=== PATIENT | female | born 1980 | race African-American/Black ===

== ENCOUNTER 2017-04-18 05:18 | Day surgery (SDC) | payer OTHER ==
[2017-04-16 17:41] VITALS: BMI 29.1
[2017-04-18] MEDS ORDERED: ONDANSETRON 4 MG/2 ML VIAL IVPUSH PRN (09:17)
[2017-04-18] MEDS ORDERED: PROMETHAZINE HCL 25 MG/1 ML VIAL IVPUSH PRN (09:17)
[2017-04-18] MEDS ORDERED: oxyCODONE HCL 5 MG TABLET PO PRN (09:17)
[2017-04-18] MEDS ORDERED: LACTATED RINGERS SOLUTION 1,000 ML IV SCH (09:30)
[2017-04-18] MEDS ORDERED: MIDAZOLAM HCL 2 MG/2 ML SINGLE DOSE VIAL ONE (09:36)
[2017-04-18] MEDS ORDERED: SUCCINYLCHOLINE CHLORIDE 200 MG/10 ML VIAL ONE (09:37)
[2017-04-18] MEDS ORDERED: PROPOFOL 20 ML ONE (09:37)
[2017-04-18] MEDS ORDERED: DEXAMETHASONE SOD PHOSPHATE 4 MG/1 ML VIAL ONE (09:38)
[2017-04-18] MEDS ORDERED: KETOROLAC TROMETHAMINE 30 MG/1 ML VIAL ONE ×2 (09:38→09:44)
[2017-04-18] MEDS ORDERED: LIDOCAINE HCL/PF 2% SDV 5ML VIAL ONE (09:38)
--- NOTE | 2017-04-18 10:15 | HP ---
History & Physical Update - History History: No Change - Physical Physical: No Change - Assessment Assessment: No Change - Plan Plan: No Change
[2017-04-18] MEDS ORDERED: ACETAMINOPHEN 325 MG TABLET (FP) PO PRN (10:17)
[2017-04-18] MEDS ORDERED: IBUPROFEN 400 MG TABLET (FP) PO PRN (10:17)
--- NOTE | 2017-04-18 10:17 | OP ---
Operative Note - Note: Operative Date: 04/18/17 Pre-Operative Diagnosis: HPV. Cervical Dysplasia Operation: LEEP cone Post-Operative Diagnosis: Same as Pre-op Surgeon: Madiha Schulte Anesthesia: General Estimated Blood Loss (mls): 25 Operative Report Dictated: Yes
--- NOTE | 2017-04-18 10:32 | OP ---
DATE OF OPERATION: 04/18/2017 PREOPERATIVE DIAGNOSIS: Human papilloma virus and cervical dysplasia. POSTOPERATIVE DIAGNOSIS: Human papilloma virus and cervical dysplasia. OPERATION: Loop electrosurgical excision procedure cone. SURGEON: Madiha Schulte MD ANESTHESIA: General. ANESTHESIOLOGIST: Sylvie Cleary MD DESCRIPTION OF PROCEDURE: The patient was taken to the operating room, placed in dorsal lithotomy position, prepped and draped in the usual sterile fashion. Speculum was placed in the vagina. Lugol's was placed on the cervix. A large LEEP cone was submitted. Ectocervix was submitted as well as endocervix. Coagulation of the cervix was done and Monsel placed. Hemostasis was achieved. All instruments were then removed. ESTIMATED BLOOD LOSS: 25 mL. MADIHA SCHULTE M.D. [id number]
[2017-04-18 11:38] VITALS: TEMP 100
[2017-04-18] MEDS ORDERED: ACETAMINOPHEN 325 MG TABLET (FP) ONE (13:23)
[2017-04-18 14:21] VITALS: BP 111/69; PULSE 89
--- NOTE | 2017-04-23 11:19 | PATH ---
Surgical Pathology Report Patient Name: JAYLA BOSWELL [facility]. Rec. #: [id number] /Age/Gender: 1980 (Age: 36) / F Account: [id number] Location: [facility] SURGICAL Taken: 04/18/2017 Received: 04/18/2017 Reported: 04/23/2017 Physicians: Madiha Schulte M.D. Specimen(s) Received A: ECTOCERVICAL LEEPCONE B: ENDOCERVICAL LEEP CONE Clinical History Cervical dysplasia Final Diagnosis A. ECTOCERVICAL LEEP CONE BIOPSY: CERVICAL SQUAMOUS AND ENDOCERVICAL MUCOSA WITH FOCAL HIGH GRADE SQUAMOUS INTRAEPITHELIAL LESION (CERVICAL INTRAEPITHELIAL NEOPLASIA 2/ MARINO 2) WITH FOCAL GLANDULAR INVOLVEMENT IN 3-6:00 QUADRANT; AREAS OF LOW GRADE SQUAMOUS INTRAEPITHELIAL LESION ALSO PRESENT. SURGICAL RESECTION MARGINS: NEGATIVE FOR HIGH GRADE DYSPLASIA. TRANSFORMATION ZONE: PRESENT. B. ENDOCERVICAL LEEP CONE BIOPSY: ENDOCERVICAL AND FOCALLY SQUAMOUS MUCOSA WITH MARKED ACTIVE/CHRONIC CERVICITIS. NEGATIVE FOR DYSPLASIA. TRANSFORMATION ZONE: FOCALLY PRESENT. Electronically Signed Aj Boyce M.D. Gross Description A. Received in formalin labeled "ectocervical LEEP cone biopsy" is a 2.2 cm in diameter annular portion of soft tissue, consistent with a cervical LEEP cone biopsy. There is a suture marking the 12:00 aspect of the specimen, per the surgeon. The specimen is partially surfaced by a garcia pink, shiny and glistening mucosa. The specimen is inked blue, serially sectioned and entirely and sequentially submitted in 4 cassettes as follows: 1-12:00 to 3:00; 2-3:00 to 6:00; 3-6:00 to 9:00; 4-9:00 to 12:00. B. Received in formalin labeled "LEEP endocervical biopsy" is a 2.5 x 1.3 x 0.7 cm irregular, unoriented portion of soft tissue. The specimen is inked blue and serially sectioned. The specimen is entirely and sequentially submitted in 3 cassettes. 04/18/201704/18/2017
== END 2017-04-18 14:05 | disposition home or self-care (01) ==
LOC: JASU-SURG 05:18
PROVIDERS: ATTEND Obstetrics & Gynecology
PROC: 0UBC7ZX Excision of Cervix, Via Natural or Artificial Opening, Diagnostic (ICD-10-PCS; principal; 2017-04-18 08:30)
DX: N87.1 Moderate cervical dysplasia (principal); R87.820 Cervical low risk human papillomavirus (HPV) DNA test positive
CPT/HCPCS: 88307-TC; 94760